=== PATIENT | male | born 1935 | race Caucasian/White ===

== ENCOUNTER → 2017-08-02 | Outpatient (CLI) | payer OTHER, BC ==
[~2017-08-02] MED LIST: ATORVASTATIN CA10 MG PO; FENOFIBRATE160 M1 PO; LOSARTAN POTASS25 MG PO; METFORMIN HCL500 MG PO; NORCO 5/3251 TABLET PO
== END | disposition home or self-care (01) ==
LOC: RAD 08:41 → NUC 11:00
DX: R05 Cough (principal)
CPT/HCPCS: 71020; 78582; A9540; A9567

== ENCOUNTER 2018-01-20 11:19 | Emergency (ER) | payer OTHER, BC ==
[~2018-01-20] VITALS: Ht 162.6 cm; Wt 94.3 kg
[2018-01-20 12:15] LABS: HEMATOCRIT 49.4 % (38.0-50.0); HEMOGLOBIN 16.8 G/DL (12.5-16.6); MCH 31.9 PG (29.0-34.0); MCV 93.9 FL (86-99); PLATELET COUNT 240 K/uL (156-360); RBC DIS.WIDTH-CV 12.7 % (11.8-14.6); RED BLOOD COUNT 5.26 M/uL (4.00-5.50); WHITE BLOOD COUNT 9.4 K/uL (4.1-10.2)
[2018-01-20 12:26] LABS: CHLORIDE 104 mEq/L (99-109); SODIUM 141 mEq/L (136-147)
[2018-01-20 12:28] LABS: GLUCOSE 120 mg/dL (70-99)
[2018-01-20 12:31] LABS: CREATININE 1.7 mg/dL (0.6-1.3); GFR ESTIMATE (CALCULATED) 41 mL/min/ (58.99-99999)
[2018-01-20 12:32] LABS: UREA NITROGEN (BUN) 31 mg/dL (9-23)
[2018-01-20 13:46] LABS: APPEARANCE CLEAR ((CLEAR)); BILIRUBIN NEGATIVE; BLOOD NEGATIVE; COLOR YELLOW ((YELLOW)); GLUCOSE (STRIP) NEGATIVE; KETONES NEGATIVE; LEUKOCYTES NEGATIVE; NITRITE NEGATIVE; PROTEIN (STRIP) NEGATIVE; SPECIFIC GRAVITY 1.015 (1.000-1.030); UCUL ADDED? NO; UROBILINOGEN 0.2 MG/DL (0.2-1.0)
[2018-01-20 13:50] LABS: TROP-I INTERPRETATION NEGATIVE; TROPONIN-I < 0.01 ng/mL (0.0-0.30)
[2018-01-20] MEDS ORDERED: CLONIDINE HCL0.1 MG PO ×2 (15:57→16:48)
[2018-01-20 16:38] LABS: TROP-I INTERPRETATION NEGATIVE; TROPONIN-I 0.01 ng/mL (0.0-0.30)
[2018-01-20 16:49] VITALS: BP 159/73
== END 2018-01-20 17:28 | disposition home or self-care (01) ==
LOC: EME 11:19
PROVIDERS: Nurse Practitioner Family
DX: I10 Essential (primary) hypertension (principal); E11.9 Type 2 diabetes mellitus without complications; Z79.84 Long term (current) use of oral hypoglycemic drugs; Z88.6 Allergy status to analgesic agent; Z87.891 Personal history of nicotine dependence
CPT/HCPCS: 71046; 80048; 81003; 82948; 84484; 85027; 93005; 99281; 99285; J0360; J7030